=== PATIENT | male | born 2000 | race African-American/Black ===

== ENCOUNTER 2021-10-27 10:17 | Emergency (ER) | payer OTHER ==
[~2021-10-27] VITALS: Ht 172.7 cm; Wt 74.5 kg
[2021-10-27 14:36] VITALS: BP 131/65
== END 2021-10-27 14:36 | disposition home or self-care (01) ==
LOC: M ED 10:17
DX: Z20.822 Contact with and (suspected) exposure to COVID-19 (principal)

== ENCOUNTER 2021-11-15 07:51 | Emergency (ER) | payer OTHER ==
[~2021-11-15] VITALS: Ht 172.7 cm; Wt 73.0 kg
[2021-11-15 10:12] VITALS: BP 125/77
[2021-11-15] MEDS ORDERED: PEPC1TAB5 PO (10:23)
[2021-11-15] MEDS ORDERED: ONDA4TAB6 PO (10:24)
[2021-11-15] MEDS ORDERED: FAMOTIDINE 20 MG TAB PO ONE (10:25)
== END 2021-11-15 10:30 | disposition home or self-care (01) ==
LOC: M ED 07:51
DX: K21.9 Gastro-esophageal reflux disease without esophagitis (principal)